=== PATIENT | female | born 1955 ===

== ENCOUNTER → 2019-10-18 10:56 | Outpatient (CLI) | payer SELFPAY ==
[2019-10-21 13:15] LABS: Prothrombin Time Fingerstick 12.9 SEC (11.9-14.4)
[2019-10-26 13:15] LABS: Prothrombin Time Fingerstick 11.8 SEC (11.9-14.4)
[2019-10-26 13:15] LABS: Prothrombin Time Fingerstick 13.6 SEC (11.9-14.4)
[2019-10-26 13:15] LABS: Prothrombin Time Fingerstick 12.4 SEC (11.9-14.4)
[2019-10-26 13:16] LABS: Prothrombin Time Fingerstick 12.6 SEC (11.9-14.4)
[2019-10-26 13:16] LABS: Prothrombin Time Fingerstick 12.4 SEC (11.9-14.4)
[2019-10-26 13:16] LABS: Prothrombin Time Fingerstick 12.8 SEC (11.9-14.4)
== END ==
DX: Z00.00 Encounter for general adult medical examination without abnormal findings (principal)
CPT/HCPCS: 36416; 85610